=== PATIENT | female | born 1980 | race Hispanic/Latino ===

== ENCOUNTER 2024-03-06 19:13 | Emergency (ER) | payer SELFPAY ==
[2024-03-06] MEDS ORDERED: Ibuprofen 200 MG TAB ONE (19:41)
[2024-03-06 20:18] LABS: Bacteria/HPF None Seen HPF (None Seen); Bilirubin Negative (Negative); Blood, Urine 3+ (Negative); CAUTI Indications for Culture Alt mental st,lethar; Clarity Turbid (Clear); Glucose, Urine (Dipstick) Normal (Negative); Ketone, Urine Negative (Negative); Leukocyte Negative Leu/uL (Negative); Nitrite Negative (Negative); Protein, Urine (Dipstick) 30 mg/dL (Neg-Trace); RBC/HPF Greater than 50 HPF (0-3); Specific Gravity, Urine 1.014 (1.002-1.036); WBC/HPF 0-3 HPF (0-3)
[2024-03-06 20:19] LABS: Urine Culture Reflex No No
== END 2024-03-06 21:16 | disposition home or self-care (01) ==
LOC: ERS 19:13
DX: B34.9 Viral infection, unspecified (principal)
CPT/HCPCS: 71046; 81001; 87428